=== PATIENT | male | born 1955 | race Caucasian/White ===

== ENCOUNTER → 2022-12-01 09:18 | Outpatient (CLI) | payer MEDICARE, OTHER, SELFPAY ==
--- NOTE | 2022-12-01 09:21 | DI.CT.S_ITS ---
PROCEDURE: CT SINUS SCREEN WO CON INDICATIONS: SINUS CONGESTION TECHNIQUE: Noncontrast 3.0 mm axial images acquired from the frontal sinuses to the mid-sella, with coronal and sagittal reformats. For radiation dose reduction, the following was used: automated exposure control, adjustment of mA and/or kV according to patient size. COMPARISON: None. FINDINGS: Image quality: Excellent. Maxillary Sinuses: No bony remodeling or destruction. Minimal right maxillary sinus mucosal thickening. Left maxillary sinus is clear. Ethmoid Air Cells: No bony remodeling or destruction. Sinuses are clear. Sphenoid Sinuses: No bony remodeling or destruction. Sinuses are clear. Frontal Sinuses: No bony remodeling or destruction. Mucosal thickening of the frontal sinuses. Ostiomeatal Complexes: Ostiomeatal complexes are patent. No Darleen cells. Miscellaneous: Visualized intra-orbital contents are normal. No manuel bullosa or paradoxical turbinate curvature. No nasal septal deviation. IMPRESSION: Mild right maxillary and bilateral frontal sinus disease. Dictated by: Ty Robertson M.D. on 12/01/2022 at 14:43 Approved by: Ty Robertson M.D. on 12/01/2022 at 14:55
== END ==
PROVIDERS: Referring Provider Internal Medicine; Visit Provider Internal Medicine
DX: J32.4 Chronic pansinusitis (principal); J34.89 Other specified disorders of nose and nasal sinuses
CPT/HCPCS: 70486

== ENCOUNTER → 2024-11-20 13:14 | Outpatient (CLI) | payer MEDICARE, OTHER, SELFPAY ==
--- NOTE | 2024-11-20 | DI.MRI.S_ITS ---
PROCEDURE: MR SHOULDER RT WO CON INDICATIONS: IMPINGEMENT SYNDROME OF RIGHT SHOULDER TECHNIQUE: Noncontrast oblique coronal T2 fast spin echo with fat saturation, oblique sagittal T1 spin echo and T2 fast spin echo with fat saturation, axial T1 spin echo and T2 fast spin echo with fat saturation through the shoulder. COMPARISON: [facility] [place], [place], XR SHOULDER 2+ VIEWS RIGHT, 11/10/2024, 10:47. FINDINGS: Image quality: Excellent. Rotator cuff: Mild tendinosis supraspinatus and infraspinatus. There is high- grade, interstitial tear of the anterior footprint of the supraspinatus (08:14, and 6:9). No tear of the infraspinatus. The teres minor is unremarkable. The subscapularis is unremarkable. No muscle edema or fatty atrophy. Bones and bursae: Moderate degenerative changes of the acromioclavicular joint. Type 1 acromion. No os acromiale. Trace subacromial/subdeltoid bursitis. Moderate subchondral cystic changes with marrow edema at the mid greater tuberosity, reactive. No acute fracture. No focal chondral defect of the glenohumeral articulation. Capsule and soft tissues: Superior labral tear, extending anteriorly to the anterior superior labrum. Posterior labral tear as well. No paralabral cyst. Mild tenosynovitis of the extra-articular biceps tendon. Mild tendinosis of the extra-articular biceps tendon. Moderate tendinosis of the distal intra-articular biceps tendon with low-grade interstitial tear. Small glenohumeral effusion. Mild subcoracoid bursitis. No intra-articular body. IMPRESSION: 1. High-grade interstitial tear at the anterior footprint of the supraspinatus. 2. Moderate degenerative changes of the acromioclavicular joint. 3. Labral tear. 4. Moderate tendinosis of the distal intra-articular biceps tendon with low- grade tear. Dictated by: Adina Jade M.D. on 11/20/2024 at 16:13 Approved by: Adina Jade M.D. on 11/20/2024 at 16:26
== END ==
LOC: MRI 13:16
PROVIDERS: PCP Internal Medicine; Referring Provider Orthopaedic Surgery; Visit Provider Orthopaedic Surgery
DX: M75.111 Incomplete rotator cuff tear or rupture of right shoulder, not specified as traumatic (principal); M75.41 Impingement syndrome of right shoulder; S46.211A Strain of muscle, fascia and tendon of other parts of biceps, right arm, initial encounter; S43.491A Other sprain of right shoulder joint, initial encounter
CPT/HCPCS: 73221